=== PATIENT | male | born 1970 | race Caucasian/White ===

== ENCOUNTER 2017-10-20 05:55 | Day surgery (SDC) | payer OTHER ==
--- NOTE | 2017-10-17 09:11 | PREOPHP ---
DATE OF ADMISSION: 10/20/2017 The patient to have surgery with Dr. Abdirashid Cool 10/20/2017. REASON FOR CONSULTATION: Consultation requested by Dr. Abdirashid Cool for medical evaluation and clearance of a 47-year-old gentleman about to undergo surgery. Thank you, Dr. Cool for allowing us to participate in the care of this patient. HISTORY OF PRESENT ILLNESS: Martín Calloway, a 47-year-old gentleman with longstanding history of back issues, is currently being admitted for correction of the above problem. In terms of his past medic al and surgical history, he has not had any medical hospitalizations nor has he had any surgeries. He has not broken any bones. He takes no chronic medications and is generally in good health. SOCIAL HISTORY: The patient is , has 5 children and 2 grandchildren. He does not smoke or d rink alcoholic beverages. Does drink coffee, is employed and usually has no difficulty sleeping at night. FAMILY HISTORY: Father at age 82 of brain tumor. Mother age 80. He is not quite sure of the cause. Seven siblings are in good health to his knowledge. There is family history he knows of his diabetes and brain tumor. Otherwise, he knows of no heart, hypertension or stroke. REVIEW OF SYSTEMS HEENT: Periodic headaches. CARDIORESPIRATORY: Occasional chest discomfort, but no palpitations or shortness of breath. GASTROINTESTINAL: No melena or hematemesis. GENITOURINARY: No urgency, frequency. MUSCULOSKELETAL: Positive for back pain. NEUROPSYCHIATRIC: Unremarkable. GENERAL HEALTH: As above. PHYSICAL EXAMINATION: VITAL SIGNS: The patient's blood pressure was 125/80, pulse was 71 and regular, respirations were 1 8, temperature 98.4. Height 5 feet 5 inches, weight 184 pounds. GENERAL: The patient was noted to be a well-developed, well-nourished male, alert and cooperative, in no apparent acute distress, oriented to time, place and person. HEAD, EARS, EYES, NOSE AND THROAT: Head was atraumatic. Eyes: Pupils were equal, reactive to ligh t and accommodation. Fundi were benign. Tympanic membranes were unremarkable. Nose was negative. Mouth was unremarkable. Fair oral hygiene was present. NECK: Supple without any rigidity. Trachea was midline. Thyroid was within normal limits. Neck v eins were flat. Carotid pulses were equal. No bruits were heard. BACK: Unremarkable. CHEST: Symmetrical. BREASTS AND AXILLARY: Did not reveal any masses. LUNGS: Clear to percussion and auscultation. HEART: PMI fifth intercostal space at the midclavicular line. Regular sinus rhythm was noted. No significant murmurs, rubs or gallops being elicited. ABDOMEN: Soft, good bowel sounds were noted. No significant organomegaly, masses or tenderness. GENITALIA: Normal male external genitalia. RECTAL AND PROSTATIC: Per PCP. EXTREMITIES: Did not reveal any clubbing, edema or cyanosis. Peripheral pulses were physiologic. SKIN: Moist and warm without any eruptions. No gross lymphadenopathy was noted. NEUROLOGIC: Grossly intact. IMPRESSION 1. Lumbar disk disease. 2. Stable health. DISCUSSION: Review of laboratory and other data revealed the following: The patient's chemistry pa trish including electrolytes, glucose, BUN, creatinine, liver function test, magnesium, CBC, sed rate, UA, PT and PTT were normal. The patient's chest x-ray was normal and the patient's EKG was normal as well. Dr. Cool, I see no contraindication in this patient undergoing current proposed surgery under d esired form of anesthesia. I feel he is a suitable candidate at this particular point in time and w ould be more than happy to follow him along with you during his stay at [facility]. Thank you again, Dr. Cool for allowing us to participate in the care of this patient. Dictated By: VERONA LOAIZA/TOÑA Conf#: [id number] DID#: [id number]
[~2017-10-20] VITALS: Ht 165.1 cm; Wt 81.3 kg
[2017-10-20] VITALS (13 sets, daily range): BP systolic 123–138; BP diastolic 72–86; PULSE 72–98; RESP 15–20; Ht 165.1 cm; Wt 81.3 kg
[2017-10-20] MEDS ORDERED: LACTATED RINGER'S 1,000 ML IV SCH (06:00)
[2017-10-20] MEDS ORDERED: CEFAZOLIN 2 GM/50 ML (PMX) 50 ML IVPB SCH (06:00)
[2017-10-20] MEDS ORDERED: ALBU90AE INHALATION (07:01)
[2017-10-20] MEDS ORDERED: GELATIN SIZE 100 SPONGE ONE (07:09)
[2017-10-20] MEDS ORDERED: THROMBIN 5000 UNIT VIAL ONE (07:10)
[2017-10-20] MEDS ORDERED: BUPIVACAINE 0.25% (MPF) 30 ML INJ ONE (07:10)
[2017-10-20] MEDS ORDERED: BUPIVACAINE 0.5%/EPI (SDV) 30 ML INJ ONE (07:10)
[2017-10-20] MEDS ORDERED: POLYMYXIN/BACITRACIN 1L IRRIG ONE (07:10)
[2017-10-20] MEDS ORDERED: SUCCINYLCHOLINE CHLORIDE 100 MG/5 ML SYG IV ONE (07:34)
[2017-10-20] MEDS ORDERED: PROPOFOL 20 ML ONE (07:34)
[2017-10-20] MEDS ORDERED: METOCLOPRAMIDE 10 MG INJ ONE (07:34)
[2017-10-20] MEDS ORDERED: MIDAZOLAM 1 MG/ML 2 ML INJ ONE (07:34)
--- NOTE | 2017-10-20 07:34 | HPN ---
Date/Time of Note Date/Time of Note DATE: 10/20/17 TIME: 07:33 Interval H&P Admission Note Pt. seen H&P reviewed: No system changes STELLA MASSEY MD Oct 20, 2017 07:34
[2017-10-20] MEDS ORDERED: FENTAnyl 50 MCG/ML VIAL ONE (07:46)
[2017-10-20] MEDS ORDERED: HYDROmorphONE 2 MG/ML SYG ONE (08:03)
[2017-10-20] MEDS ORDERED: OXYCODONE/ACETAMINOPHEN (5/325) TAB PO PRN ×2 (09:00)
[2017-10-20] MEDS ORDERED: MEPERIDINE 25 MG INJ IV PRN (09:00)
[2017-10-20] MEDS ORDERED: HYDROmorphONE (0.2 MG/ML) 10ML SYG IV PRN ×2 (09:00)
[2017-10-20] MEDS ORDERED: DIPHENHYDRAMINE 50 MG INJ IV PRN (09:00)
[2017-10-20] MEDS ORDERED: ONDANSETRON 4 MG INJ IV PRN ×2 (09:00→11:30)
[2017-10-20] MEDS ORDERED: ROCURONIUM 50 MG INJ ONE (09:11)
[2017-10-20] MEDS ORDERED: TRIAMCINOLONE ACET 40 MG/ML INJ ONE (10:32)
[2017-10-20] MEDS ORDERED: ONDANSETRON 4 MG INJ ONE (11:15)
--- NOTE | 2017-10-20 11:19 | SIPON ---
Date/Time of Note Date/Time of Note DATE: 10/20/17 TIME: 11:17 Operative Report Preoperative Diagnosis Lumbar disc herniation, L4-L5 right Postoperative Diagnosis Lumbar disc herniation, L4-L5 right with large annular tear medially Operation/Procedure Performed Lumbar laminotomy and discectomy, right, L4-L5 with magnification, high-power and spinal monitoring Surgeon see signature line educational/development assistant Gretel Akers PA-C Anesthesia: general Estimated blood loss: 0 - 10 ml's Transfusion Required none Specimen Disc contents, L4-L5 right Grafts/Implants none Complications none STELLA MASSEY MD Oct 20, 2017 11:19
[2017-10-20] MEDS ORDERED: DEXTROSE 5%-0.45% NACL 1,000 ML IV SCH (11:29)
[2017-10-20] MEDS ORDERED: ACETAMINOPHEN 325 MG TAB PO PRN (11:30)
[2017-10-20] MEDS ORDERED: HYDROmorphONE 0.2 MG/ML PCA IV SCH (11:30)
[2017-10-20] MEDS ORDERED: ZOLPIDEM 5 MG TAB PO PRN (11:30)
[2017-10-20] MEDS ORDERED: HYDROCODONE/APAP (5/325) TAB PO PRN ×2 (11:30)
[2017-10-20] MEDS ORDERED: TRIMETHOBENZAMIDE 100 MG/ML VIAL IM PRN (11:30)
[2017-10-20] MEDS ORDERED: DIAZEPAM 5 MG/ML SYG IM PRN (11:30)
[2017-10-20] MEDS ORDERED: NALOXONE (0.4 MG/ML) INJ IV PRN (11:30)
[2017-10-20] MEDS ORDERED: CEPASTAT LOZENGE MT PRN (11:30)
[2017-10-20] MEDS ORDERED: BETHANECHOL 25 MG TAB PO PRN (11:30)
[2017-10-20] MEDS ORDERED: NACL 0.9% 3 ML SYG IV SCH (11:30)
[2017-10-20] MEDS ORDERED: DIAZEPAM 5 MG TAB PO PRN (11:30)
[2017-10-20] MEDS ORDERED: AL HYDROX/MG HYDROX/SIMETH 30 ML CUP PO PRN (11:30)
[2017-10-20] MEDS ORDERED: DIPHENHYDRAMINE 50 MG CAP PO PRN (11:30)
[2017-10-20] MEDS ORDERED: PROCHLORPERAZINE 10 MG TAB PO PRN (11:30)
--- NOTE | 2017-10-20 11:32 | OPR ---
Date/Time of Note Date/Time of Note DATE: 10/20/17 TIME: 11:20 Operative Report Procedure Date: Oct 20, 2017 Preoperative Diagnosis Lumbar disc herniation, right, L4-L5 Postoperative Diagnosis Lumbar disc herniation, right, L4-L5, with large annular tear Operation/Procedure Performed Lumbar laminotomy, L4-L5 right, with discectomy, L4-L5 right and removal of discal contents Surgeon see signature line Aircraft Avionics Technician Gretel Akers Anesthesia Type: general Estimated Blood Loss: 0 - 10 ml's Transfusion none Specimen Disc contents, L4-L5 right Grafts/Implants none Complications none Pt Condition Post Procedure: stable Disposition: PACU Indications Lumbar disc herniation with intractable radiculopathy documented on MRI Procedure Description The patient was identified in the anesthesia holding unit and his questions were answered. The surgical site was marked. He was taken to the operating room and received a general endotracheal anesthetic with prior placement of various lines and spinal monitoring. He was then carefully positioned facedown on the Reese spinal table and I personally checked all pressure points. A marker x-ray was taken. The incision was marked. Prep and drape was accomplished. A 1 inch incision was made in the midline over the L4-L5 space. From 1 cm lateral, the fascia was incised sharply. The muscle was then bluntly removed from the midline. This was done with minimal blood loss. Please note that I had previously infiltrated the skin and subcutaneous tissues with Marcaine with 0.5% epinephrine. The Eland retractor was inserted and marker x- rays were taken to identify the L4-L5 space. The microscope was brought into the wound. Electrocautery was used to denude the lamina of 5 and 4 of soft tissue in the medial most aspect of the facet. A drill was then used to remove a small portion of the lamina L4. The ligamentum flavum was exposed from the lamina of L5 to the facet on up to the inferior part of the lamina of 4. Some drill removal of the medial aspect of the facet and the superior aspect of L5 was accomplished to round out the exposure of the ligamentum flavum. I then identified the critical angle and using a Kerrison punch and a combination of curettes did additional bony work isolating the ligamentum flavum which I then detached in for inferiorly and laterally at the critical angle. This was removed piecemeal but most of it was allowed to remain in place. The nerve root was easily seen and the pedicle was identified. The nerve root was retracted medially and a large soft bulging disc was found. This contained a large annular tear in the middle, and immediately lateral to the ligamentum flavum. However, despite very careful and meticulous exploration of the relevant parts of the spinal canal I did not find any residual free fragments. This was not unexpected considering the length of time which has relapsed. I then incised the disc laterally. Using a combination of Kerrison punches, curettes, rings, and push downs, I removed disc material dorsally and laterally. A fair amount was found my discotomy was taken medially until it met the large annular tear. It appears that the posterior longitudinal ligament may have been partially interrupted but I did not make a special effort to to confirmed that. Once the space had been adequately decompressed meticulously inspected again in 4 planes to make sure there was no free fragments around, considering the annular tear. Going distally, flaps of the distal annulus were noted at the edge of the vertebral body going proximally from there, I was able to go as far as the waistline of L4 without finding any free fragments. I then irrigated the wound copiously. Several drops of Kenalog were applied as well as some Marcaine with epinephrine. I then infiltrated the muscles with Marcaine with epinephrine. I carefully removed the retractor and the fascial layers were closed together with 4 sutures of #1 Vicryl. The subcutaneous tissue was closed separately with 2-0 and the skin was closed separately with Monocryl reinforced with Dermabond At the close of the procedure we were told that the instrument counts were correct. Blood loss was minimal. The patient tolerated the procedure well and from the time of the decompression onward, is spinal signal is improved constantly to reach a normal level before the procedure receiving complete. Specimen was submitted separately STELLA MASSEY MD Oct 20, 2017 11:31
[2017-10-20] MEDS ORDERED: HYDROmorphONE 0.2 MG/ML PCA ONE (11:50)
[2017-10-20] MEDS: HYDROmorphONE (0.2 MG/ML) 10ML SYG IV PRN ×2 (11:51→12:07)
[2017-10-20] MEDS ORDERED: CEFAZOLIN 1 GM/50 ML (PMX) 50 ML IVPB SCH (12:00)
[2017-10-20] MEDS ORDERED: CEFAZOLIN 1 GM INJ ONE (12:23)
[2017-10-20] MEDS ORDERED: RANITIDINE 150 MG TAB PO SCH (21:00)
[2017-10-21] MEDS ORDERED: DOCUSATE SODIUM 100 MG CAP PO SCH (09:00)
[2017-10-21] MEDS ORDERED: FERROUS SULFATE (EC) 325 MG TAB PO SCH (09:00)
[2017-10-21] MEDS ORDERED: ASCORBIC ACID 500 MG TAB PO SCH (09:00)
--- NOTE | 2017-10-21 14:58 | RADRPT ---
PROCEDURE: Intraoperative imaging of the lumbar spine with fluoroscopy. CLINICAL INDICATION: Back pain. Intraoperative. TECHNIQUE: A single frontal image of the lumbar spine was obtained in the operating room with an i mage intensifier. No radiologist was in attendance. Fluoroscopy time is 9 seconds. COMPARISON: No prior study is available for comparison. FINDINGS: There is a surgical instrument overlying the lumbar spine. IMPRESSION: 1. Intraoperative imaging of the lumbar spine. RPTAT: QQ .Toy Cochran MD, MD Date Time Electronically viewed and signed by .Toy Cochran MD, on 10/21/2017 14:57 .R/
== END 2017-10-20 15:29 | disposition home or self-care (01) ==
LOC: SDS 05:55 → UNDOADMOB 11:44 → SDS 11:44 → REC 11:44
PROVIDERS: ATTEND Specialist
DX: M51.26 Other intervertebral disc displacement, lumbar region (principal); J45.909 Unspecified asthma, uncomplicated
CPT/HCPCS: 63030; 72100; 97162; J0690; J1170; J2250; J2405; J2765; J3010